=== PATIENT | female | born 1975 | race Caucasian/White ===

== ENCOUNTER 2019-06-19 10:45 | Outpatient (CLI) | payer MEDICAID ==
[~2019-06-19] VITALS: Ht 167.6 cm; Wt 48.2 kg
[2019-06-19 11:28] LABS: APTT 25.6 SECONDS (22.8-39.4); INR 1.01 (0.85-1.17); PROTIME 12.8 SECONDS (11.6-15.0)
[2019-06-19 11:29] VITALS: Ht 167.6 cm; Wt 48.2 kg
--- NOTE | 2019-06-19 15:55 | NUR ---
1555 LASIX GIVEN IVP AND 2ND PRBC STARTED. TOLERAING WELL
--- NOTE | 2019-06-19 20:09 | NUR ---
1735 IV REMOVED AND INSTRUCTIONS GIVEN.
[2019-06-21 15:10] LABS: PARVOVIRUS B-19 - IGM 0.2 index (0.0-0.8)
== END 2019-06-19 17:45 | disposition home or self-care (01) ==
LOC: D.OPS 10:45
PROVIDERS: ATTEND Internal Medicine Hematology & Oncology
DX: D64.9 Anemia, unspecified (principal)

== ENCOUNTER 2019-06-23 14:20 | Observation (INO) | payer MEDICAID ==
[~2019-06-23] VITALS: Ht 167.6 cm; Wt 46.5 kg
[2019-06-23 15:09] LABS: BASOPHILS 0.5 % (0-2); EOSINOPHILS 0.7 % (0-7); HEMATOCRIT 32.3 % (36.0-48.0); HEMOGLOBIN 9.5 g/dL (12-16); IMMATURE GRANULOCYTES 0.2 % (0-5); LYMPHOCYTES 25.7 % (15-50); MCH 23.2 pg (26.0-34.0); MCHC 29.4 g/dL (31.0-37.0); MEAN PLATELET VOLUME 9.3 fL (7.4-10.4); MONOCYTES 9.7 % (2-11); NEUTROPHILS 63.2 % (40-80); PLATELET COUNT 177 10x3/uL (130-400); RBC 4.09 10x6/uL (4.00-5.40); WBC 5.8 10x3/uL (4.8-10.8)
[2019-06-23 15:15] VITALS: BP 115/72
[2019-06-23 15:19] LABS: INR 1.04 (0.85-1.17); PROTIME 13.1 SECONDS (11.6-15.0)
[2019-06-23 15:30] LABS: CALC OSMOLALITY 272 mosm/kg (275-300); CALCIUM 8.7 mg/dL (8.5-10.1); CARBON DIOXIDE 25.9 mmol/L (21.0-32.0); CHLORIDE - SERUM 101 mmol/L (98-107); CREATININE - SERUM 0.6 mg/dL (0.6-1.3); GLUCOSE 83 mg/dL (74-106); POTASSIUM - SERUM 3.6 mmol/L (3.5-5.1); SODIUM 138 mmol/L (136-145); UREA NITROGEN 8 mg/dL (7-18); eGFR NON AFRICAN AMERICAN > 90 mL/min (90-120)
[2019-06-23 15:45] VITALS: BP 127/78
[2019-06-23 15:52] LABS: ALBUMIN 3.6 g/dL (3.4-5.0); ALKALINE PHOSPHATASE 68 U/L (46-116); ALT (SGPT) 17 U/L (10-68); CKMB 0.3 U/L (0.0-3.6); CREATINE KINASE 80 UL (21-215); MAGNESIUM - SERUM 1.6 mg/dL (1.8-2.4); PROTEIN - SERUM 7.6 g/dL (6.4-8.2)
--- NOTE | 2019-06-23 15:56 | NUR ---
INFORMED NYDIA DOSS, OF PT'S ELEVATED TROPONIN
--- NOTE | 2019-06-23 16:05 | NUR ---
NYDIA DOSS, TO BEDSIDE TO UPDATE PT ON POC.
[2019-06-23 16:15] VITALS: BP 122/77
[2019-06-23 16:25] LABS: % SATURATION 3 % (15-55); IRON 14 ug/dl (35-150); TOTAL IRON BIND CAPACITY 435 ug/dl (260-445); UNSAT IRON BIND CAPACITY 421 ug/dl (150-375)
--- NOTE | 2019-06-23 16:29 | NUR ---
NYDIA SINGH, AT BEDSIDE.
--- NOTE | 2019-06-23 17:16 | NUR ---
TRANSFER FROM ER BY W/Sandy GARCIA TO ROOM. CALL LIGHT IN REACH. WILL CONT. PLAN OF CARE.
[2019-06-23 17:26] VITALS: BP 120/72; Ht 167.6 cm; Wt 46.5 kg
[2019-06-23 20:00] VITALS: BP 105/49
--- NOTE | 2019-06-23 20:23 | NUR ---
RECEIVED UP IN BED ON TELEPHONE. ALERT AND ORIENTED X4. UP AD ASHLEY. IV TO LEFT FA SL.. EDUCATED ON NEED FOR U/A WITH VERBAL UNDERSTANDING. VOICES CONCERNS OF WHAT IS WRONG WITH HER. EXPLAINED THAT THEY MAY NEED TO DO TEST YO FIND OUT. DENIES ANY PAIN AT THIS TIME.
[2019-06-23 21:26] LABS: CKMB 0.5 U/L (0.0-3.6); CREATINE KINASE 61 UL (21-215)
[2019-06-23 21:27] LABS: TROPONIN-I < 0.017 ng/mL (0.000-0.060)
[2019-06-23 22:36] LABS: APPEARANCE CLOUDY (CLEAR); BILIRUBIN NEGATIVE (NEGATIVE); COLOR YELLOW (YELLOW); GLUCOSE NEGATIVE (NEGATIVE); KETONE MODERATE mg/dL (NEGATIVE); NITRITE POSITIVE (NEGATIVE); PROTEIN TRACE mg/dL (NEGATIVE); UROBILINOGEN NORMAL (NORMAL)
[2019-06-23 22:37] LABS: BACTERIA MANY /hpf (NEGATIVE); RED CELLS - URINE RARE /hpf (0-5); WHITE CELLS - URINE 0-5 /hpf (NEGATIVE)
[2019-06-24] VITALS: BP 95/53
[2019-06-24 02:41] LABS: BASOPHILS 0.5 % (0-2); EOSINOPHILS 2.6 % (0-7); HEMATOCRIT 27.1 % (36.0-48.0); IMMATURE GRANULOCYTES 0.2 % (0-5); LYMPHOCYTES 30.8 % (15-50); MCH 23.2 pg (26.0-34.0); MCHC 29.5 g/dL (31.0-37.0); MCV 78.6 fL (80.0-100.0); MEAN PLATELET VOLUME 8.8 fL (7.4-10.4); MONOCYTES 11.6 % (2-11); NEUTROPHILS 54.3 % (40-80); PLATELET COUNT 177 10x3/uL (130-400); RBC 3.45 10x6/uL (4.00-5.40); RDW 27.9 % (11.5-14.5); WBC 6.2 10x3/uL (4.8-10.8)
[2019-06-24 03:06] LABS: CALC OSMOLALITY 277 mosm/kg (275-300); CALCIUM 8.9 mg/dL (8.5-10.1); CARBON DIOXIDE 26.9 mmol/L (21.0-32.0); CHLORIDE - SERUM 106 mmol/L (98-107); CKMB 0.3 U/L (0.0-3.6); CREATINE KINASE 60 UL (21-215); CREATININE - SERUM 0.6 mg/dL (0.6-1.3); GLUCOSE 89 mg/dL (74-106); MAGNESIUM - SERUM 1.9 mg/dL (1.8-2.4); POTASSIUM - SERUM 3.7 mmol/L (3.5-5.1); SODIUM 140 mmol/L (136-145); TROPONIN-I < 0.017 ng/mL (0.000-0.060); UREA NITROGEN 13 mg/dL (7-18); eGFR NON AFRICAN AMERICAN > 90 mL/min (90-120)
[2019-06-24 04:00] VITALS: BP 96/49
[2019-06-24 07:36] VITALS: BP 104/48
[2019-06-24 11:31] VITALS: BP 117/63
[2019-06-24 15:05] VITALS: BP 115/61
[2019-06-24] MEDS ORDERED: LEVOFLOXACIN500 MG PO (15:32)
--- NOTE | 2019-06-24 16:13 | NUR ---
IV AND TELEMETRY DCD. DC PLANS GIVEN. UNDERSTANDING VOICED.
== END 2019-06-24 16:14 | disposition home or self-care (01) ==
LOC: D.ER 14:20 → D.M2 16:19 → OBSVTIME 16:19 → D.M2 06-24 15:49
PROVIDERS: Emergency Medicine; ADMIT Internal Medicine Nephrology; ATTEND Internal Medicine Nephrology
DX: I21.A1 Myocardial infarction type 2 (principal); N39.0 Urinary tract infection, site not specified; F17.213 Nicotine dependence, cigarettes, with withdrawal; D50.9 Iron deficiency anemia, unspecified; E83.42 Hypomagnesemia; F41.8 Other specified anxiety disorders; N92.1 Excessive and frequent menstruation with irregular cycle